=== PATIENT | female | born 1955 | race Caucasian/White ===

== ENCOUNTER → 2021-07-21 | Outpatient (CLI) | payer MEDICARE ==
[~2021-07-21] MED LIST: ALPR1; ASPI325 PO; Accupril40 MG PO; Isosorbide Mono30 MG PO; METO100ER; OXYC30; QUIN10; ROSU10TA PO; SERT100 PO; TIAG12
== END | disposition home or self-care (01) ==
LOC: LAB 15:34 → LAB SHORT 15:34
DX: R10.9 Unspecified abdominal pain (principal); R35.0 Frequency of micturition; R32 Unspecified urinary incontinence
CPT/HCPCS: 87086

== ENCOUNTER 2022-09-21 09:38 | Inpatient (IN) | payer MEDICARE, OTHER ==
[~2022-09-21] VITALS: Ht 165.1 cm; Wt 84.5 kg
[2022-09-21 10:23] LABS: BASOPHILS ABSOLUTE AUTO 0.09 K/mm3 (0.00-0.23); BASOPHILS PERCENT AUTO 0 % (0-2); EOSINOPHILS ABSOLUTE AUTO 0.04 K/mm3 (0.00-0.68); EOSINOPHILS PERCENT AUTO 0 % (0-6); Hematocrit 39.4 % (33.0-51.0); Hemoglobin 13.9 g/dL (11.5-16.0); IMMATURE GRAN ABSOLUTE AUTO 0.37 K/mm3 (0.00-0.10); IMMATURE GRAN PERCENT AUTO 2 % (0-1); LYMPHOCYTES ABSOLUTE AUTO 1.88 K/mm3 (0.84-5.20); LYMPHOCYTES PERCENT AUTO 8 % (21-46); MONOCYTES ABSOLUTE AUTO 1.45 K/mm3 (0.16-1.47); MONOCYTES PERCENT AUTO 6 % (4-13); Mean Corpuscular HGB 31.5 pg (26.0-34.0); Mean Corpuscular HGB Conc 35.3 g/dL (31.5-36.5); Mean Corpuscular Volume 89 fL (80-100); Mean Platelet Volume 10.7 fL (9.1-12.4); NEUTROPHILS ABSOLUTE AUTO 21.34 K/mm3 (1.96-9.15); NEUTROPHILS PERCENT AUTO 85 % (41-73); Platelet Count 265 K/mm3 (150-400); RDW Coefficient Variation 13.2 % (11.7-14.2); Red Blood Cell Count 4.41 M/mm3 (3.80-5.20); White Blood Cell Count 25.17 K/mm3 (4.00-11.30)
[2022-09-21 10:45] LABS: Bun/Creatinine Ratio 10.3 (12.0-20.0); Calcium, Blood 8.5 mg/dL (8.5-10.1); Creatinine, Blood 0.68 mg/dL (0.40-1.00); Potassium, Blood 2.6 mmol/L (3.5-5.5)
[2022-09-21 10:54] LABS: Albumin, Blood 2.2 g/dL (3.4-5.0); Albumin/Globulin Ratio 0.4 (0.8-1.8); Bilirubin, Direct 0.2 mg/dL (0.0-0.3); Bilirubin, Indirect 0.5 mg/dL (0.1-0.7); Bilirubin, Total 0.7 mg/dL (0.1-1.0); Globulin, Blood 4.9 g/dL (2.2-4.0); Total Protein, Blood 7.1 g/dL (6.4-8.2)
[2022-09-21] MEDS ORDERED: AMLO10 PO (15:57)
[2022-09-21 18:31] LABS: Bun/Creatinine Ratio 10.9 (12.0-20.0); Calcium, Blood 8.4 mg/dL (8.5-10.1); Creatinine, Blood 0.64 mg/dL (0.40-1.00)
--- NOTE | 2022-09-21 18:48 | NUR ---
PT ADMITTED TO ROOM 302 FROM ED AT 1540, STRETCHER TO BED TX. PT AMBULATED SBA, GOOD STRENGTH, MILDLY UNSTESDY GAIT. ORIENTED TO ROOM SAFETY AND INSTRUCTED TO USE CALL LIGHT FOR ASSIST FOR AMBULATION RELATED TO MILDLY UNSTEADY GAIT.
--- NOTE | 2022-09-21 18:49 | NUR ---
SUMM- PT ADMITTED, AWAITING SURG. PT NAPPING AFTER ADMIT COMPLETED. STARTED IVF. PAIN SEEMS TO HAVE SUBSIDED PT RESTING QUIET WITH EYES CLOSED. WILL REPORT TO CAROLYNN RN. PT HAS BEEN NPO
[2022-09-22 06:45] LABS: BASOPHILS ABSOLUTE AUTO 0.08 K/mm3 (0.00-0.23); BASOPHILS PERCENT AUTO 0 % (0-2); EOSINOPHILS ABSOLUTE AUTO 0.01 K/mm3 (0.00-0.68); EOSINOPHILS PERCENT AUTO 0 % (0-6); Hematocrit 36.2 % (33.0-51.0); Hemoglobin 12.2 g/dL (11.5-16.0); IMMATURE GRAN ABSOLUTE AUTO 0.26 K/mm3 (0.00-0.10); IMMATURE GRAN PERCENT AUTO 1 % (0-1); LYMPHOCYTES ABSOLUTE AUTO 1.79 K/mm3 (0.84-5.20); LYMPHOCYTES PERCENT AUTO 8 % (21-46); MONOCYTES ABSOLUTE AUTO 1.53 K/mm3 (0.16-1.47); MONOCYTES PERCENT AUTO 7 % (4-13); Mean Corpuscular HGB Conc 33.7 g/dL (31.5-36.5); Mean Corpuscular Volume 92 fL (80-100); Mean Platelet Volume 10.7 fL (9.1-12.4); NEUTROPHILS ABSOLUTE AUTO 18.69 K/mm3 (1.96-9.15); NEUTROPHILS PERCENT AUTO 84 % (41-73); Platelet Count 240 K/mm3 (150-400); RDW Coefficient Variation 13.5 % (11.7-14.2); RDW Standard Deviation 45.5 fL (35.1-46.3); Red Blood Cell Count 3.94 M/mm3 (3.80-5.20); White Blood Cell Count 22.36 K/mm3 (4.00-11.30)
--- NOTE | 2022-09-22 06:46 | NUR ---
UP SBA TO BSC, AT TIMES FORGETS TO CALL FOR ASSIST, RECENT HX OF FALLS AT HOME. BED ALARM ON. NPO SINCE MIDNIGHT. A0X4 BUT FORGETFUL. VSS. MORPHINE 4 MG GIVEN X2 FOR ABD PAIN. UNEVENTFUL NIGHT.
[2022-09-22 07:02] LABS: Albumin, Blood 1.8 g/dL (3.4-5.0); Albumin/Globulin Ratio 0.4 (0.8-1.8); Bilirubin, Total 0.6 mg/dL (0.1-1.0); Bun/Creatinine Ratio 10.9 (12.0-20.0); Calcium, Blood 7.9 mg/dL (8.5-10.1); Creatinine, Blood 0.55 mg/dL (0.40-1.00); Globulin, Blood 4.6 g/dL (2.2-4.0); Magnesium, Blood 2.2 mg/dL (1.6-2.4); Potassium, Blood 2.9 mmol/L (3.5-5.5); Total Protein, Blood 6.4 g/dL (6.4-8.2)
[2022-09-22 07:45] LABS: International Normalized Ratio 1.19; Prothrombin Time Results 12.4 Sec (9.7-11.5)
--- NOTE | 2022-09-22 10:50 | NUR ---
RN NOTE MS READ IS SLEEPY THIS AM, EASILY AWAKES. ORIENTATED X4. RUQ PAIN 5/10, NOT WANTING PAIN MEDS AT THIS TIME. HAD ABDOMINAL CT SCAN THIS AM. GETTING IV POTASSIUM INFUSIONS AND IVF, NPO FOR SURGERY TODAY. NO SOB ON RA. BED LOW, CALL LIGHT IN REACH, BED ALARM SET.
--- NOTE | 2022-09-22 15:52 | NUR ---
RN NOTE CALL FROM [facility]/TECH THAT PT WAS IN SEVERE PAIN. TELEPHONE ORDER FOR 4MG MORHINE EXTRA DOSE FROM DR YUN IN [place] WHICH I WENT DOWN AND ADMINISTERED IN CT SCAN. PT STILL IN SEVERE PAIN CURRENTLY, NOW 9.12/15. DR OLSON IS PUTTING IN PAIN MEDICATION AND DIET ORDERS. DR DIXONFORMED FLUID SENT FROM CT TO LAB AND IS PLACING ORDERS. MS VICENTE SHIRLEY HAS NEW RUQ DRAIN IN PLACE.
--- NOTE | 2022-09-22 17:56 | NUR ---
RN NOTE DR OLSON NOTIFIED OF DR DUARTE'S ORDER TO DC BLOOD THINNERS FOR 48HRS. UNABLE TO HOLD MEDICATIONS, CONCERNED THAT THE MEDS MAY NOT GET RESTARTED SO SPOKE WITH DR SANDERS. PLAVIX, ASA, LOVENOX DC'D PER DR OLSNO. SCDS ON PT. PT MORE COMFORTABLE NOW. PAIN 8. FENTANYL IV GIVEN, BUT PT ABLE TO TALKM, WATCH TV AT THIS TIME AND SAID PAIN IS STILL HIGH BUT NOT BAD IT WAS.
--- NOTE | 2022-09-22 20:01 | NUR ---
SHIFT SUMMARY SEE PRIOR RN NOTES. MS READ HAD A DRAIN PLACED IN CT SCAN TODAY UNDER LOCAL ANESTHETIC. SHE HAD A LOT OF PAIN AFTERWARDS, PAIN IS BETTER CONTROLLED AT 8/10 AT END OF SHIFT, PT ABLE TO WATCH TV AND EAT/ TALK ON THE PHONE NOW. DRAIN IS PUTTING OUT BROWN THIN LIQUID AND SXN MAINTAINED. 65CC EMPTIED PRIOR TO CHANGE OF SHIFT. ON TELEMETRY - SR, SOME PERIODS OF ACCELERATED JUNCTIONAL (DR OLSON NOTIFIED THIS AM). NO C/O CHEST PAIN OR SOB. ABLE TO TRANSFER TO BSC WITH STAND BY ASSIST, STEADY TRANSFER. BED LOW, CALL LIGHT IN REACH. BED ALARM IN USE.
[2022-09-23 04:35] LABS: BASOPHILS ABSOLUTE AUTO 0.05 K/mm3 (0.00-0.23); BASOPHILS PERCENT AUTO 0 % (0-2); EOSINOPHILS ABSOLUTE AUTO 0.03 K/mm3 (0.00-0.68); EOSINOPHILS PERCENT AUTO 0 % (0-6); Hemoglobin 11.5 g/dL (11.5-16.0); IMMATURE GRAN ABSOLUTE AUTO 0.14 K/mm3 (0.00-0.10); IMMATURE GRAN PERCENT AUTO 1 % (0-1); LYMPHOCYTES ABSOLUTE AUTO 2.77 K/mm3 (0.84-5.20); LYMPHOCYTES PERCENT AUTO 18 % (21-46); MONOCYTES ABSOLUTE AUTO 0.85 K/mm3 (0.16-1.47); MONOCYTES PERCENT AUTO 6 % (4-13); Mean Corpuscular HGB 30.6 pg (26.0-34.0); Mean Corpuscular HGB Conc 32.9 g/dL (31.5-36.5); Mean Corpuscular Volume 93 fL (80-100); Mean Platelet Volume 10.7 fL (9.1-12.4); NEUTROPHILS ABSOLUTE AUTO 11.74 K/mm3 (1.96-9.15); NEUTROPHILS PERCENT AUTO 75 % (41-73); Platelet Count 263 K/mm3 (150-400); RDW Standard Deviation 47.4 fL (35.1-46.3); Red Blood Cell Count 3.76 M/mm3 (3.80-5.20); White Blood Cell Count 15.58 K/mm3 (4.00-11.30)
--- NOTE | 2022-09-23 04:36 | NUR ---
PATIENT IS ALERT AND ORIENTED X4, COOPERATIVE WITH CARE. 04/17 RLQ PAIN TREATED PER OCT. 200ML OF BROWN DRAINAGE FROM DRAIN COLLECTED. IV INFUSING NS AND WNL. 1X ASSIST TO BSC FOR WEAKNESS. TELE NS PER TECH. NO OTHER ISSUES TO REPORT. WILL CONT TO MONITOR.
[2022-09-23 05:08] LABS: Bun/Creatinine Ratio 13.3 (12.0-20.0); Calcium, Blood 8.2 mg/dL (8.5-10.1); Creatinine, Blood 0.68 mg/dL (0.40-1.00); Magnesium, Blood 2.2 mg/dL (1.6-2.4); Potassium, Blood 3.2 mmol/L (3.5-5.5)
--- NOTE | 2022-09-23 18:08 | NUR ---
SHIFT SUMMARY PT WITH PAIN THROUGH THE DAY BUT HOME DOSE OF OXYCODONE WAS ORDERED AND PAIN STARTING TO IMPROVE. SITTING ON SIDE OF BED FOR SUPPER AND STATES SHE FEELS GOOD SITTING UP. ACCORDIAN DRAIN EMPTYING 2X TODAY. SEEN BY SURGEON THIS MORNING. POOR APPETITE AND NOT EATING MUCH FOR BREAKFAST OR LUNCH BUT EXCITED ABOUT EATING SUPPER. ABDOMEN VERY TENDER TO PALPATION.
[2022-09-24 04:43] LABS: BASOPHILS ABSOLUTE AUTO 0.04 K/mm3 (0.00-0.23); BASOPHILS PERCENT AUTO 0 % (0-2); EOSINOPHILS ABSOLUTE AUTO 0.06 K/mm3 (0.00-0.68); EOSINOPHILS PERCENT AUTO 1 % (0-6); Hematocrit 35.3 % (33.0-51.0); Hemoglobin 11.7 g/dL (11.5-16.0); IMMATURE GRAN ABSOLUTE AUTO 0.05 K/mm3 (0.00-0.10); IMMATURE GRAN PERCENT AUTO 1 % (0-1); LYMPHOCYTES ABSOLUTE AUTO 2.21 K/mm3 (0.84-5.20); LYMPHOCYTES PERCENT AUTO 23 % (21-46); MONOCYTES ABSOLUTE AUTO 0.54 K/mm3 (0.16-1.47); MONOCYTES PERCENT AUTO 6 % (4-13); Mean Corpuscular HGB 30.7 pg (26.0-34.0); Mean Corpuscular HGB Conc 33.1 g/dL (31.5-36.5); Mean Corpuscular Volume 93 fL (80-100); Mean Platelet Volume 10.6 fL (9.1-12.4); NEUTROPHILS ABSOLUTE AUTO 6.66 K/mm3 (1.96-9.15); NEUTROPHILS PERCENT AUTO 70 % (41-73); Platelet Count 268 K/mm3 (150-400); RDW Coefficient Variation 13.9 % (11.7-14.2); RDW Standard Deviation 47.4 fL (35.1-46.3); Red Blood Cell Count 3.81 M/mm3 (3.80-5.20); White Blood Cell Count 9.56 K/mm3 (4.00-11.30)
--- NOTE | 2022-09-24 04:45 | NUR ---
SHIFT NOTE ALERT AND ORIENTED X4, COOPERATIVE WITH CARE, VSS. RUQ DRAIN DRAINING TO SUCTION WITH 300 OUTPUT. N/V AND PAIN TREATED PER MAR. CONTACT GUARD TO BSC. IV SL AND WNL. WILL CONT TO MONITOR.
[2022-09-24 05:10] LABS: Albumin, Blood 1.8 g/dL (3.4-5.0); Anion Gap 6 mmol/L (6-16); Blood Urea Nitrogen 7 mg/dL (8-24); Bun/Creatinine Ratio 10.4 (12.0-20.0); CO2, Blood 27 mmol/L (21-32); Calcium, Blood 8.5 mg/dL (8.5-10.1); Chloride, Blood 107 mmol/L (98-108); Creatinine, Blood 0.67 mg/dL (0.40-1.00); Glomerular Filtration Rate 96 (60-); Glucose, Blood 87 mg/dL (70-99); Magnesium, Blood 2.2 mg/dL (1.6-2.4); Phosphorus, Blood 2.6 mg/dL (2.5-4.9); Potassium, Blood 3.1 mmol/L (3.5-5.5); Sodium, Blood 140 mmol/L (136-145)
--- NOTE | 2022-09-24 18:24 | NUR ---
SHIFT SUMMARY PT A&OX4 AND PLEASANT. NO ACUTE CHANGES. DRESSING ON DRAIN SITE CHANGED. PT AND FAMILY EDUATED ON HOW TO CHANGE DRESSING AND EMPTY DRAIN ONCE HOME. PT C/O PAIN IN RUQ. MEDICATED PER EMAR. PT ATE VERY LITTLE TODAY, STATING THAT THE FOOD TASTED FUNNY. PT OFFERED STOOL SOFTENER D/T NO BM SINCE 09/17. PT REFUSED STATING SHE'S NOT EATING ENOUGH TO MAKE STOOL BUT THAT SHE IS PASSING GAS. BED IN LOWEST POSITION AND CALL LIGHT IN REACH.
--- NOTE | 2022-09-25 03:07 | NUR ---
SHIFT SUMMARY NOC PT A/O X 4. PT IS POST PERCUTANEOUS CHOLECYSTOSTOMY PLACEMENT IN RUQ ON 09/22/22. ACCORDIAN DRAIN IS SUTURED IN AND DRAIN IS DRAINING DARK BILE LIQUID 200 ML DURING SHIFT. PT REPORTS MILD PAIN IN RUQ. PT TAKING ZOSYN BUT EXPECTED TO DISCHARGE HOME WITH AUGMENTIN FOR 14 DAYS. PT RECEIVED EDUCATION ON HOW TO CARE FOR DRESSING CHANGES AND DRAIN CARE REQUIREMENTS DURING AM SHIFT. SITE SHOWS NO S/SX OF INFECTION. PT IS SCHEDULED TO GO HOME WITH HOME HEALTH FOR ASSISTANCE. PT IS ON TELE RUNNING S[place] @ 53 BPM. PT IS CURRENTLY RESTING IN BED WITH BED IN LOWEST POSITION, AND CALL LIGHT WITHIN REACH. WCTM.
[2022-09-25 05:52] LABS: Magnesium, Blood 2.3 mg/dL (1.6-2.4)
[2022-09-25 05:54] LABS: Bun/Creatinine Ratio 8.4 (12.0-20.0); Calcium, Blood 8.2 mg/dL (8.5-10.1); Creatinine, Blood 0.72 mg/dL (0.40-1.00); Phosphorus, Blood 2.9 mg/dL (2.5-4.9)
--- NOTE | 2022-09-25 06:28 | NUR ---
PT AM LAB HAD POTASSIUM OF 3.0 DOWN FROM 3.1 PREVIOUS DAY. HOSPITALIST NOTIFIED AND ORDERED 40 MEQ PO NOW AND ANOTHER DOSE 4 HOURS LATER. WILL PASS ON TO DAY SHIFT.
--- NOTE | 2022-09-25 06:29 | NUR ---
NOTIFIED [facility] CIO THAT PT HAD WAS SUSTAINING HR OF 46 WHILE DIPPING LOW 39 TWICE AND 43 FOR A COUPLE MINUTES. CHECKED ON PT AND PT WAS ASYMPTOMATIC. WCTM AND PASS ALONG TO DAY SHIFT TO MONITOR.
[2022-09-25] MEDS ORDERED: METO25ER PO (12:06)
[2022-09-25] MEDS ORDERED: OXYC10TA19 PO (12:08)
[2022-09-25] MEDS ORDERED: Crestor40 MG PO (12:08)
[2022-09-25] MEDS ORDERED: ASPI81CH PO (12:09)
[2022-09-25] MEDS ORDERED: CLOP75 PO (12:09)
[2022-09-25] MEDS ORDERED: VISBIOME 112.51 EACH PO (12:10)
[2022-09-25] MEDS ORDERED: AMOCLA875 PO (12:10)
--- NOTE | 2022-09-25 15:03 | NUR ---
DISCHARGE NOTE PT DISCHARGED TO HOME, HER BROTHER ARRIVED TO PICK HER UP. IV REMOVED AND TELE RETURNED TO PCU. EDUCATIONS AND DISCHARGE INSTRUCTIONS PROVIDED. MEDICATIONS FAXED TO THE PHARMACY OF HER CHOICE. PT TAKEN TO VEHICLE BY WHEELCHAIR WITH THE MEDICAID NURSE.
== END 2022-09-25 14:44 | disposition home health service (06) | DRG 444 ==
LOC: ER 09:38 → MEDS 13:08 → SURS 13:08 → MEDS 15:45 → ENPENDDIS 09-25 11:46 → MEDS 09-25 14:44
PROVIDERS: Family Medicine; Nurse Practitioner Acute Care; Student in an Organized Health Care Education/Training Program; ADMIT Hospitalist
PROC: 0F9430Z Drainage of Gallbladder with Drainage Device, Percutaneous Approach (ICD-10-PCS; principal; 2022-09-22)
DX: K81.0 Acute cholecystitis (principal); K82.2 Perforation of gallbladder; E87.1 Hypo-osmolality and hyponatremia; I50.32 Chronic diastolic (congestive) heart failure; I25.10 Atherosclerotic heart disease of native coronary artery without angina pectoris; K82.A1 Gangrene of gallbladder in cholecystitis; J44.9 Chronic obstructive pulmonary disease, unspecified; E78.5 Hyperlipidemia, unspecified; K29.70 Gastritis, unspecified, without bleeding; F17.210 Nicotine dependence, cigarettes, uncomplicated; E87.6 Hypokalemia; F32.A Depression, unspecified; I11.0 Hypertensive heart disease with heart failure; E88.09 Other disorders of plasma-protein metabolism, not elsewhere classified; B96.20 Unspecified Escherichia coli [E. coli] as the cause of diseases classified elsewhere; D72.828 Other elevated white blood cell count; Z95.5 Presence of coronary angioplasty implant and graft; Z71.6 Tobacco abuse counseling; Z90.710 Acquired absence of both cervix and uterus; Z88.2 Allergy status to sulfonamides; Z88.8 Allergy status to other drugs, medicaments and biological substances; Z79.82 Long term (current) use of aspirin; Z79.899 Other long term (current) drug therapy
CPT/HCPCS: 36415; 49405; 71046; 74177; 76705; 80048; 80053; 80069; 80076; 83735; 84100; 84484; 85025; 85610; 87070; 87075; 87077; 87186; 87205; 93005; 93010; 93308; 93321; 94760; 96365; 96366; 96368; 96375; 96376; 99285-25; A9270; J0696; J0780; J1170; J2270; J2405; J2543; J2795; J3010; J3480; J7030; J7050; Q9967

== ENCOUNTER 2023-01-09 08:15 | Emergency (ER) | payer MEDICARE ==
[~2023-01-09] VITALS: Ht 172.7 cm; Wt 75.8 kg
[~2023-01-09 08:15] MED LIST changes: +AMLO10 PO; +AMOCLA875 PO; +ASPI81CH PO; +CLOP75 PO; +Crestor40 MG PO; +METO25ER PO; +OXYC10TA19 PO; +VISBIOME 112.51 EACH PO
[2023-01-09 09:07] LABS: BASOPHILS ABSOLUTE AUTO 0.03 K/mm3 (0.00-0.23); BASOPHILS PERCENT AUTO 0 % (0-2); EOSINOPHILS ABSOLUTE AUTO 0.05 K/mm3 (0.00-0.68); EOSINOPHILS PERCENT AUTO 0 % (0-6); Hematocrit 47.6 % (33.0-51.0); Hemoglobin 15.9 g/dL (11.5-16.0); IMMATURE GRAN ABSOLUTE AUTO 0.04 K/mm3 (0.00-0.10); IMMATURE GRAN PERCENT AUTO 0 % (0-1); LYMPHOCYTES ABSOLUTE AUTO 3.07 K/mm3 (0.84-5.20); LYMPHOCYTES PERCENT AUTO 25 % (21-46); MONOCYTES ABSOLUTE AUTO 0.52 K/mm3 (0.16-1.47); MONOCYTES PERCENT AUTO 4 % (4-13); Mean Corpuscular HGB 30.2 pg (26.0-34.0); Mean Corpuscular HGB Conc 33.4 g/dL (31.5-36.5); Mean Corpuscular Volume 91 fL (80-100); Mean Platelet Volume 11.5 fL (9.1-12.4); NEUTROPHILS PERCENT AUTO 70 % (41-73); Platelet Count 233 K/mm3 (150-400); RDW Coefficient Variation 14.3 % (11.7-14.2); RDW Standard Deviation 47.9 fL (35.1-46.3); Red Blood Cell Count 5.26 M/mm3 (3.80-5.20); White Blood Cell Count 12.21 K/mm3 (4.00-11.30)
[2023-01-09 09:14] LABS: Albumin/Globulin Ratio 0.6 (0.8-1.8); Bilirubin, Total 1.2 mg/dL (0.1-1.0); Bun/Creatinine Ratio 19.2 (12.0-20.0); Calcium, Blood 9.3 mg/dL (8.5-10.1); Creatinine, Blood 0.68 mg/dL (0.40-1.00); Globulin, Blood 5.3 g/dL (2.2-4.0); Potassium, Blood 2.9 mmol/L (3.5-5.5); Total Protein, Blood 8.3 g/dL (6.4-8.2)
[2023-01-09 14:30] VITALS: BP 157/98
== END 2023-01-09 15:10 | disposition short-term general hospital (02) ==
LOC: ER 08:15
PROVIDERS: Family Medicine
DX: L76.34 Postprocedural seroma of skin and subcutaneous tissue following other procedure (principal); I10 Essential (primary) hypertension; I25.10 Atherosclerotic heart disease of native coronary artery without angina pectoris; E78.5 Hyperlipidemia, unspecified; F17.210 Nicotine dependence, cigarettes, uncomplicated; Z88.2 Allergy status to sulfonamides; Z88.8 Allergy status to other drugs, medicaments and biological substances; Z79.82 Long term (current) use of aspirin; Z79.02 Long term (current) use of antithrombotics/antiplatelets; Z79.899 Other long term (current) drug therapy
CPT/HCPCS: 74177; 80053; 83690; 85025; 96365-59; 96366; 96375; 96376; 99285-25; A9270; J1170; J3480; J7030; J7050; Q9967